=== PATIENT | male | born 1965 | race Caucasian/White ===

== ENCOUNTER 2018-03-09 07:54 | Emergency (ER) | payer BC, OTHER ==
[~2018-03-09] VITALS: Ht 170.2 cm; Wt 90.7 kg
[~2018-03-09 07:54] MED LIST: ALLO300T2 PO; TAMS-3 PO
[2018-03-09] MEDS ORDERED: ONDANSETRON 4 MG/2 ML VIAL IV ONE (08:45)
[2018-03-09] MEDS ORDERED: IV NORMAL SALINE 1000 ML BAG IV ONE (08:45)
[2018-03-09] MEDS: KETOROLAC TROMETHAMINE 30 MG INJ IVP ONE (08:47)
[2018-03-09] MEDS ORDERED: MORPHINE SULFATE 4 MG/1 ML DISP.SYRIN ONE (08:47)
[2018-03-09] MEDS ORDERED: KETOROLAC TROMETHAMINE 30 MG INJ ONE (08:47)
[2018-03-09] MEDS ORDERED: ONDANSETRON 4 MG/2 ML VIAL ONE (08:47)
[2018-03-09] MEDS: MORPHINE SULFATE 2 MG/1 ML DISP.SYRIN IV ONE (08:49)
[2018-03-09 09:01] LABS: BASOPHILS % (AUTO) 0.4 % (0.0-2.0); EOSINOPHILS # (AUTO) 0.1 K/uL (0.0-0.7); EOSINOPHILS % (AUTO) 0.9 % (0.0-7.0); HEMATOCRIT 37.3 % (36.7-47.1); HEMOGLOBIN 13.2 g/dL (12.5-16.3); LYMPHOCYTES # (AUTO) 0.7 K/uL (20.0-40.0); LYMPHOCYTES % (AUTO) 7.4 % (20.5-51.5); MEAN CORPUSCULAR HEMOGLOBIN 31.9 uug (23.8-33.4); MEAN CORPUSCULAR HGB CONC 35 g/dL (32.5-36.3); MEAN CORPUSCULAR VOLUME 90.1 fL (73.0-96.2); MONOCYTES # (AUTO) 0.7 K/uL (2.0-10.0); MONOCYTES % (AUTO) 7.5 % (0.0-11.0); NEUTROPHILS # (AUTO) 8.3 K/uL (1.8-8.9); NEUTROPHILS % (AUTO) 83.8 % (38.5-71.5); PLATELET COUNT (AUTO) 141 K/uL (152-348); RED BLOOD CELL COUNT(AUTO) 4.14 MIL/uL (4.06-5.63)
[2018-03-09 09:05] LABS: *BILIRUBIN,URIN NEGATIVE (NEGATIVE); *BLOOD, URINE NEGATIVE (NEGATIVE); *CLARITY,URINE CLEAR (CLEAR); *COLOR,URINE YELLOW (YELLOW); *KETONES,URINE NEGATIVE (NEGATIVE); *PROTEIN,URINE TRACE (NEGATIVE); LEUKOCYTE ESTERASE ,URINE NEGATIVE (NEGATIVE); NITRITE, URINE NEGATIVE (NEGATIVE); UGLUCOSE NEGATIVE (NEGATIVE)
[2018-03-09 09:11] LABS: BACTERIA,URINE FEW /HPF (NONE SEEN); RBC,URINE NONE SEEN /HPF (0-3); SQUAMOUS EPITHELIAL CELL,UR FEW /HPF (NONE SEEN)
[2018-03-09 09:13] LABS: CREATININE 1.6 mg/dL (0.6-1.3); POTASSIUM 3.7 mmol/L (3.5-5.1)
--- NOTE | 2018-03-09 10:01 | NUR ---
Patient is resting comfortably on gurney while watching bedside TV. PATIENT IS PAIN FREE AT THIS TIME.
--- NOTE | 2018-03-09 10:23 | NUR ---
IV removed. Catheter intact and site benign. Pressure and 4x4 gauze applied to site. No bleeding noted.
--- NOTE | 2018-03-09 10:30 | NUR ---
Patient discharged to home in stable conditon & steady gait. Written and verbal after care instructions given to patient and spouse. Patient and spouse verbalized understanding of instructions.
== END 2018-03-09 10:32 | disposition home or self-care (01) ==
LOC: ER 07:57
DX: N20.0 Calculus of kidney (principal); E78.5 Hyperlipidemia, unspecified; I25.2 Old myocardial infarction; I25.10 Atherosclerotic heart disease of native coronary artery without angina pectoris; Z79.899 Other long term (current) drug therapy
CPT/HCPCS: 36415; 85025; 93005; A4663; J1885; J2270; J2405

== ENCOUNTER 2018-03-12 10:53 | Emergency (ER) | payer OTHER ==
[~2018-03-12] VITALS: Ht 170.2 cm; Wt 90.7 kg
[2018-03-12 11:52] LABS: BASOPHILS # (AUTO) 0.1 K/uL (0.0-8.0); BASOPHILS % (AUTO) 0.7 % (0.0-2.0); EOSINOPHILS # (AUTO) 0.1 K/uL (0.0-0.7); EOSINOPHILS % (AUTO) 1.6 % (0.0-7.0); HEMATOCRIT 38.6 % (36.7-47.1); HEMOGLOBIN 13.4 g/dL (12.5-16.3); LYMPHOCYTES # (AUTO) 0.8 K/uL (20.0-40.0); LYMPHOCYTES % (AUTO) 9.9 % (20.5-51.5); MEAN CORPUSCULAR HEMOGLOBIN 31.5 uug (23.8-33.4); MEAN CORPUSCULAR HGB CONC 35 g/dL (32.5-36.3); MEAN CORPUSCULAR VOLUME 90.4 fL (73.0-96.2); MONOCYTES # (AUTO) 0.5 K/uL (2.0-10.0); MONOCYTES % (AUTO) 6.6 % (0.0-11.0); NEUTROPHILS # (AUTO) 6.3 K/uL (1.8-8.9); NEUTROPHILS % (AUTO) 81.2 % (38.5-71.5); PLATELET COUNT (AUTO) 179 K/uL (152-348); RED BLOOD CELL COUNT(AUTO) 4.27 MIL/uL (4.06-5.63); WHITE BLOOD COUNT (AUTO) 7.7 K/uL (3.6-10.2)
[2018-03-12 12:02] LABS: CREATININE 1.6 mg/dL (0.6-1.3); POTASSIUM 3.7 mmol/L (3.5-5.1)
[2018-03-12 12:08] LABS: BILIRUBIN,DIRECT 0.1 mg/dL (0.0-0.2); BILIRUBIN,TOTAL 0.6 mg/dL (0.2-1.0); TOTAL PROTEIN, SERUM 7.1 g/dL (6.4-8.2)
[2018-03-12 12:12] LABS: *BILIRUBIN,URIN NEGATIVE (NEGATIVE); *BLOOD, URINE 2+ (NEGATIVE); *CLARITY,URINE CLEAR (CLEAR); *COLOR,URINE YELLOW (YELLOW); *KETONES,URINE NEGATIVE (NEGATIVE); *PROTEIN,URINE NEGATIVE (NEGATIVE); *UROBILINOGEN,URINE 0.2 E.U./dl (NORMAL); LEUKOCYTE ESTERASE ,URINE NEGATIVE (NEGATIVE); NITRITE, URINE NEGATIVE (NEGATIVE); UGLUCOSE NEGATIVE (NEGATIVE)
[2018-03-12 12:28] LABS: BACTERIA,URINE FEW /HPF (NONE SEEN); SQUAMOUS EPITHELIAL CELL,UR FEW /HPF (NONE SEEN)
--- NOTE | 2018-03-12 12:32 | NUR ---
ALL MD ORDERS COMPLETEDM, DR CATALAN PAGED FOR ADMIT.
--- NOTE | 2018-03-12 12:57 | NUR ---
CALLED [facility] FOR DR CATALAN
[2018-03-12] MEDS ORDERED: METO-356 PO (12:58)
[2018-03-12] MEDS ORDERED: VALS40TA4 PO (12:58)
[2018-03-12] MEDS ORDERED: ASPI81TA31 PO (12:58)
[2018-03-12] MEDS ORDERED: ATOR80TA PO (12:58)
--- NOTE | 2018-03-12 13:15 | NUR ---
MIMI spoke to [facility], Dr. Harding
--- NOTE | 2018-03-12 13:45 | NUR ---
CANELO FROM [facility] CALLED IN REGARDS TO PT'S STAUS OF STABLE AND UNSTABLE, STATED SHE WOULD HAVE THE WELDING SYSTEMS AND EQUIPMENT REPAIRER CALL THE ER MD TO DISCUSS REGARDING AUTHORIZING THE ADMISSION.
[2018-03-12] MEDS ORDERED: KETOROLAC TROMETHAMINE 30 MG INJ ONE (13:53)
[2018-03-12] MEDS ORDERED: KETOROLAC TROMETHAMINE 30 MG INJ IVP ONE (14:00)
--- NOTE | 2018-03-12 14:13 | NUR ---
MIGUEL CALLED AND PT TO BE TRANSFERRED TO [facility]. DR CATALAN WAS NOTIFIED REGARDING THE PT'S NOT TO BE ADMITTED. I CALLED 2ND FLOOR AND NOTIFIED CLAYTON LEON.
--- NOTE | 2018-03-12 15:30 | NUR ---
SPOKE WITH BRAD FROM [facility] WHOM INFORMED THAT DR HAY AT [facility] ACCEPTED AND SHE WOULD CALL BACK FOR THE REST OF THE INFO.
--- NOTE | 2018-03-12 17:06 | NUR ---
SPOKE WITH [facility] NURSE WHOM STATED NO BEDS AVAIL TILL NEXT SHIFT DUE TO STAFFING ISSUES.
[2018-03-12] MEDS ORDERED: ACETAMINOPHEN 325 MG TABLET PO ONE (17:45)
[2018-03-12] MEDS ORDERED: ACETAMINOPHEN ES 500 MG TABLET ONE (17:57)
--- NOTE | 2018-03-12 19:10 | NUR ---
SB[facility] REPORT TO ADEEL WELSH. PT AWAITING TRANSFER TO [facility]
--- NOTE | 2018-03-12 19:43 | NUR ---
[employer] [employer] FROM [facility] CALLED BACK WITH TRANSFER INFOR. PATIENT WILL BE GOING TO [facility] ROOM [id number] PHONE # . ACCEPTING MD IS DR HAY. [facility] WILL PROCESS DEVELOPER PATIENT IN 45MINS
[2018-03-12] MEDS ORDERED: ONDANSETRON 4 MG/2 ML VIAL ONE (19:54)
[2018-03-12] MEDS ORDERED: ONDANSETRON IV *ER 4 MG/2 ML VIAL IV ONE (20:00)
--- NOTE | 2018-03-12 20:16 | NUR ---
Patient Tranfers to [facility]. Physician: Dr. Ruiz Diagnosis: Renal Calculi Report given to Nunu WELSH.
--- NOTE | 2018-03-12 20:49 | NUR ---
Pt left [facility] via [facility] unit [id number] en route to [facility]. VSS. No acute distress noted. All belongings with pt. Family members aware.
== END 2018-03-12 20:52 | disposition short-term general hospital (02) ==
LOC: ER 10:56
DX: N20.0 Calculus of kidney (principal); I25.10 Atherosclerotic heart disease of native coronary artery without angina pectoris; Z79.82 Long term (current) use of aspirin; Z79.899 Other long term (current) drug therapy
CPT/HCPCS: 36415; 71045; 74176; 76775; 80048; 80076; 81001; 83690; 84484; 85025; 85730; 93005; 96374; 96375; 99285; A4663; A9150; J1885; J2405; J7030; 70030-TC